=== PATIENT | male | born 1940 | race Caucasian/White ===

== ENCOUNTER 2018-01-20 07:52 | Outpatient (CLI) | payer MEDICARE ==
[2018-01-20 12:09] LABS: ALT ALANINE AMINOTRANSFERASE 36 IU/L (10-60); AST ASPARTATE AMINOTRANSFERASE 39 IU/L (10-42); CHOL/HDL RATIO 3.5 (<5.0); CHOLESTEROL 142 mg/dL; HDL CHOLESTEROL 41 mg/dL; LDL CHOLESTEROL,CALCULATED 85 mg/dL; LDL/HDL RATIO 2.1 (<3.6); VLDL CHOLESTEROL 16 mg/dL
== END 2018-01-20 07:53 | disposition home or self-care (01) ==
LOC: LAB.F 07:52
PROVIDERS: ATTEND Internal Medicine
DX: E78.5 Hyperlipidemia, unspecified (principal)
CPT/HCPCS: 36415; 80061; 83721; 84450; 84460

== ENCOUNTER 2018-07-20 10:50 | Outpatient (CLI) | payer MEDICARE ==
[2018-07-20 17:56] LABS: ALBUMIN 4.4 g/dL (3.2-5.5); ALBUMIN/GLOBULIN RATIO 1.6 (1.0-2.2); ALKALINE PHOSPHATASE 99 IU/L (42-121); ALT ALANINE AMINOTRANSFERASE 39 IU/L (10-60); AST ASPARTATE AMINOTRANSFERASE 44 IU/L (10-42); BILIRUBIN,TOTAL 0.9 mg/dL (0.2-1.0); BUN - BLOOD UREA NITROGEN 14 mg/dL (6-20); CALCIUM 10.6 mg/dL (8.5-10.3); CARBON DIOXIDE - CO2 29 mmol/L (21-32); CHLORIDE 104 mmol/L (101-111); CHOL/HDL RATIO 3.3 (<5.0); CHOLESTEROL 173 mg/dL; CREATININE 0.9 mg/dL (0.6-1.2); GFR - MDRD 82 (>89); GLUCOSE 97 mg/dL (70-100); HDL CHOLESTEROL 52 mg/dL; LDL CHOLESTEROL,CALCULATED 101 mg/dL; LDL/HDL RATIO 1.9 (<3.6); SODIUM 140 mmol/L (135-145); TOTAL PROTEIN 7.2 g/dL (6.7-8.2); VLDL CHOLESTEROL 20 mg/dL
[2018-07-20 18:30] LABS: HB2 TOTAL 18.8 g/dL; HEMOGLOBIN A1C 0.67 g/dL; HEMOGLOBIN A1C % 5.4 % (4.6-6.2)
== END 2018-07-20 10:51 | disposition home or self-care (01) ==
LOC: LAB.F 10:50
PROVIDERS: ATTEND Internal Medicine
DX: E78.5 Hyperlipidemia, unspecified (principal); Z13.1 Encounter for screening for diabetes mellitus
CPT/HCPCS: 36415; 80053; 80061; 83036; 83721

== ENCOUNTER 2019-02-04 06:38 | Day surgery (SDC) | payer MEDICARE ==
[2019-02-04] MEDS ORDERED: PHENYLEPHRINE 2.5% OPHTH 2 ML DROPS ONE (06:39)
[2019-02-04] MEDS ORDERED: CYCLOPENTOLATE 1% OPHTH DROPS 2 ML ONE (06:39)
[2019-02-04] MEDS ORDERED: KETOROLAC 0.45% OPHTH DROPS ONE (06:39)
[2019-02-04] MEDS ORDERED: PROPARACAINE 0.5% OPHTH DROPS 15 ML ONE (06:39)
[2019-02-04] MEDS ORDERED: BRIMONIDINE 0.2% OPHTH DROPS 5 ML ONE (07:14)
[2019-02-04] MEDS ORDERED: BSS/LIDOCAINE/EPINEPHRINE 1 ML SYRINGE ONE (07:14)
[2019-02-04] MEDS ORDERED: TIMOLOL 0.5% OPHTH DROPS ONE (07:14)
[2019-02-04] MEDS ORDERED: TRIAMCIN/MOXIFLOX OPHTHALMIC 0.6 ML VIAL IO ONE ×2 (07:14→08:26)
[2019-02-04] MEDS ORDERED: VANCOMYCIN OPHTHALMI 8MG/0.8ML 8 MG/0.8 ML SYRINGE IO ONE ×2 (07:14→08:26)
[2019-02-04] MEDS ORDERED: LACTATED RINGERS 500 ML IV ONE (07:35)
[2019-02-04] MEDS ORDERED: PROPARACAINE 0.5% OPHTH DROPS 15 ML LEFTEYE ONE ×2 (07:40→08:25)
[2019-02-04] MEDS ORDERED: CYCLOPENTOLATE 1% OPHTH DROPS 2 ML LEFTEYE ONE (07:40)
[2019-02-04] MEDS ORDERED: KETOROLAC 0.45% OPHTH DROPS LEFTEYE ONE (07:40)
[2019-02-04] MEDS ORDERED: PHENYLEPHRINE 2.5% OPHTH 2 ML DROPS LEFTEYE ONE (07:40)
--- NOTE | 2019-02-04 08:00 | ANESTHESIA ---
Pre-Anesthesia VS, & Labs - Diagnosis left nuclear sclerotic cataract - Procedure left cataract extraction with intraocular lens implant Vital Signs: Temp Pulse Resp BP Pulse Ox 36.9 C 70 16 155/79 H 94 02/04/19 07:36 02/04/19 07:36 02/04/19 07:36 02/04/19 07:36 02/04/19 07:36 Height 5 ft 8 in Weight (kg) 89 kg - NPO >8 hours Home Medications and Allergies Home Medications: Ambulatory Orders Atorvastatin Calcium [Lipitor] 40 mg PO DAILY 02/03/19 Lisinopril 40 mg PO DAILY 02/03/19 Atorvastatin Calcium [Lipitor] 40 mg PO DAILY 02/03/19 Lisinopril 40 mg PO DAILY 02/03/19 Allergies/Adverse Reactions: Allergies Allergy/AdvReac Type Severity Reaction Status Date / Time No Known Drug Allergies Allergy Verified 02/03/19 12:03 Anes History & Medical History - Anesthetic History Anesthesia Complications: reports: No previous complications - Medical History Cardiovascular: reports: Hypertension Pulmonary: reports: None Musculoskeletal: reports: None Skin: reports: None Smoking Status: Never smoker - Surgical History Eyes Ears Nose Throat (EENT): Detached retina repair Neurologic: Craniotomy (for subdural hematoma) Exam General: Alert Dental: Dentures full Upper, Dentures full Lower Mouth Opening: Greater than 4 Fingerbreadths Mallampati classification: II Thyromental Distance: greater than 6 cm Respiratory: Lungs clear Cardiovascular: Regular rate Mental/Cognitive Status: Alert/Oriented X3 Plan Anesthesia Type: MAC Consent for Procedure(s) Verified and Reviewed: Yes Code Status: Attempt Resuscitation ASA classification: 2-Mild systemic disease Is this case an emergency?: No
[2019-02-04] MEDS ORDERED: BRIMONIDINE 0.2% OPHTH DROPS 5 ML OPTH ONE (08:24)
[2019-02-04] MEDS ORDERED: EPINEPHrine 1 MG/ML AMP IVP ONE (08:24)
[2019-02-04] MEDS ORDERED: CHONDR SULF/HYALURONATE SYRINGE IO ONE (08:24)
[2019-02-04] MEDS ORDERED: BSS/LIDOCAINE/EPINEPHRINE 1 ML SYRINGE IO ONE (08:25)
[2019-02-04] MEDS ORDERED: TIMOLOL 0.5% OPHTH DROPS OPTH ONE (08:25)
[2019-02-04] MEDS ORDERED: MIDAZOLAM 2 MG/2 ML VIAL IVP ONE (08:47)
[2019-02-04] MEDS ORDERED: fentaNYL 100 MCG/2 ML VIAL IVP ONE (08:47)
[2019-02-04 09:04] VITALS: BP 118/58
--- NOTE | 2019-02-04 09:11 | OPERATIVE REPORT ---
DATE OF SERVICE: 02/04/2019 Physician: Rocky Bailey MD PREOPERATIVE DIAGNOSIS: Complex, visually significant cataract, left eye. Complex due to small pupil required mechanical dilation using a Malyugin Ring. This was his first cataract surgery. POSTOPERATIVE DIAGNOSIS: Complex, visually significant cataract, left eye. Complex due to small pupil required mechanical dilation using a Malyugin Ring. This was his first cataract surgery. PROCEDURE: Phacoemulsification with posterior chamber intraocular lens implant, left eye. SURGEON: Rocky Bailey MD ANESTHESIA: Monitored anesthesia care. COMPLICATIONS: None. OPERATIVE INDICATIONS: This is a 78-year-old man with progressive vision loss in the left eye due to 4+ nuclear sclerotic cataract. Best corrected visual acuity was 20/70 with glare to 20/150 in the left eye. Indications for surgery were overall decrease in vision, difficulty reading, difficulty seeing words, closed captions or game scores on TV and difficulty seeing street signs. He was consented at length concerning risks and benefits of cataract surgery, after which he expressed a desire to proceed with surgery. OPERATIVE PROCEDURE: Patient was taken into OR #3 and placed under monitored anesthesia care. A surgical timeout was conducted confirming the correct patient, correct procedure, and correct surgical site. He was given topical anesthesia and then prepped and draped in the usual sterile fashion. The eye was entered at the 6 and 3 o'clock positions and intracameral Shugarcaine was injected into the anterior chamber, followed by Viscoat. Because of small pupil, a 7.0 mm Malyugin ring was injected into the anterior chamber, and engaged the pupil margin at 4 points to expand the pupil. A continuous-tear curvilinear capsulorrhexis was then performed. The nucleus was hydrodissected and phacoemulsified. The cortex was evacuated using automated infusion and aspiration. Provisc was injected into the capsular bag, and a 21.0 diopter intraocular lens inserted in the bag. Approximately 0.8 mL of a mixture of triamcinolone, moxifloxacin and vancomycin was injected subconjunctivally in the superior quadrant for infection and inflammation prophylaxis. The Malyugin ring was then disengaged from the pupil margin and removed from the anterior chamber. I and A was used to evacuate the viscoelastic material. The eye was inflated to physiologic pressure using balanced salt solution and found to be watertight. Patient was taken from the operating room in good condition and given postoperative instructions. TD: 02/04/2019 09:04 FOREIGN
== END 2019-02-04 06:39 | disposition home or self-care (01) ==
LOC: SDS 06:38
PROVIDERS: ATTEND Ophthalmology
PROC: 08RK3JZ Replacement of Left Lens with Synthetic Substitute, Percutaneous Approach (ICD-10-PCS; principal; 2019-02-04 08:30)
DX: H25.12 Age-related nuclear cataract, left eye (principal); I10 Essential (primary) hypertension; Z95.0 Presence of cardiac pacemaker
CPT/HCPCS: 66984; A9270; J3490; V2632

== ENCOUNTER 2019-03-04 08:49 | Outpatient (CLI) | payer MEDICARE ==
[2019-03-04 10:41] LABS: ALBUMIN 4.3 g/dL (3.2-5.5); ALBUMIN/GLOBULIN RATIO 1.6 (1.0-2.2); ALKALINE PHOSPHATASE 81 IU/L (42-121); ALT ALANINE AMINOTRANSFERASE 45 IU/L (10-60); AST ASPARTATE AMINOTRANSFERASE 55 IU/L (10-42); BILIRUBIN,TOTAL 1.2 mg/dL (0.2-1.0); BUN - BLOOD UREA NITROGEN 15 mg/dL (6-20); CALCIUM 10.5 mg/dL (8.5-10.3); CARBON DIOXIDE - CO2 26 mmol/L (21-32); CHLORIDE 106 mmol/L (101-111); CHOL/HDL RATIO 3.5 (<5.0); CHOLESTEROL 173 mg/dL; CREATININE 0.8 mg/dL (0.6-1.2); GFR - MDRD 93 (>89); GLUCOSE 102 mg/dL (70-100); HDL CHOLESTEROL 50 mg/dL; LDL CHOLESTEROL,CALCULATED 107 mg/dL; LDL/HDL RATIO 2.1 (<3.6); SODIUM 140 mmol/L (135-145); VLDL CHOLESTEROL 16 mg/dL
== END 2019-03-04 08:50 | disposition home or self-care (01) ==
LOC: LAB.F 08:49
PROVIDERS: ATTEND Internal Medicine
DX: E78.5 Hyperlipidemia, unspecified (principal)
CPT/HCPCS: 36415; 80053; 80061; 83721

== ENCOUNTER 2019-04-08 07:38 | Day surgery (SDC) | payer MEDICARE ==
[~2019-04-08 07:38] MED LIST: BRIMONIDINE 0.2% OPHTH DROPS 5 ML ONE; BSS/LIDOCAINE/EPINEPHRINE 1 ML SYRINGE ONE; CYCLOPENTOLATE 1% OPHTH DROPS 2 ML ONE; EPINEPHrine 1 MG/ML AMP ONE; KETOROLAC 0.45% OPHTH DROPS ONE; PHENYLEPHRINE 2.5% OPHTH 2 ML DROPS ONE; PROPARACAINE 0.5% OPHTH DROPS 15 ML ONE; TIMOLOL 0.5% OPHTH DROPS ONE; TRIAMCIN/MOXIFLOX OPHTHALMIC 0.6 ML VIAL IO ONE; VANCOMYCIN OPHTHALMI 8MG/0.8ML 8 MG/0.8 ML SYRINGE IO ONE
[2019-04-08] MEDS ORDERED: LACTATED RINGERS 500 ML IV ONE (07:42)
[2019-04-08] MEDS ORDERED: PROPARACAINE 0.5% OPHTH DROPS 15 ML RIGHTEYE ONE ×2 (07:50→09:24)
[2019-04-08] MEDS ORDERED: KETOROLAC 0.45% OPHTH DROPS RIGHTEYE ONE (07:50)
[2019-04-08] MEDS ORDERED: CYCLOPENTOLATE 1% OPHTH DROPS 2 ML RIGHTEYE ONE (07:50)
[2019-04-08] MEDS ORDERED: PHENYLEPHRINE 2.5% OPHTH 2 ML DROPS RIGHTEYE ONE (07:50)
--- NOTE | 2019-04-08 08:26 | ANESTHESIA ---
Pre-Anesthesia VS, & Labs - Diagnosis nuclear sclerotic cataract - Procedure right cataract extraction with intraocular lens Vital Signs: Temp Pulse Resp BP Pulse Ox 37.1 C 70 18 166/75 H 97 04/08/19 07:47 04/08/19 07:47 04/08/19 07:47 04/08/19 07:47 04/08/19 07:47 Height 5 ft 8 in Weight (kg) 88.8 kg - NPO >8 hours Home Medications and Allergies Atorvastatin Calcium [Lipitor] 40 mg PO DAILY 02/03/19 Lisinopril 40 mg PO DAILY 02/03/19 Allergies/Adverse Reactions: Allergies Allergy/AdvReac Type Severity Reaction Status Date / Time No Known Drug Allergies Allergy Verified 04/08/19 07:46 Anes History & Medical History - Anesthetic History Anesthesia Complications: reports: No previous complications - Medical History Cardiovascular: reports: Hypertension Pulmonary: reports: None Gastrointestinal: reports: None Urinary: reports: None Musculoskeletal: reports: None Skin: reports: None Smoking Status: Never smoker - Surgical History Eyes Ears Nose Throat (EENT): Detached retina repair Neurologic: Craniotomy Exam General: Alert Dental: Dentures full Upper, Dentures full Lower Mouth Opening: Greater than 4 Fingerbreadths Neck Mobility: Normal Mallampati classification: II Thyromental Distance: greater than 6 cm Respiratory: Lungs clear Cardiovascular: Regular rate, Normal S1, Normal S2 Plan Anesthesia Type: MAC Consent for Procedure(s) Verified and Reviewed: Yes Code Status: Attempt Resuscitation ASA classification: 2-Mild systemic disease Is this case an emergency?: No
[2019-04-08] MEDS ORDERED: EPINEPHrine 1 MG/ML AMP IVP ONE (09:19)
[2019-04-08] MEDS ORDERED: BRIMONIDINE 0.2% OPHTH DROPS 5 ML OPTH ONE (09:19)
[2019-04-08] MEDS ORDERED: CHONDR SULF/HYALURONATE SYRINGE IO ONE (09:24)
[2019-04-08] MEDS ORDERED: TIMOLOL 0.5% OPHTH DROPS OPTH ONE (09:24)
[2019-04-08] MEDS ORDERED: BSS/LIDOCAINE/EPINEPHRINE 1 ML SYRINGE IO ONE (09:24)
[2019-04-08] MEDS ORDERED: VANCOMYCIN OPHTHALMI 8MG/0.8ML 8 MG/0.8 ML SYRINGE IO ONE (09:25)
[2019-04-08] MEDS ORDERED: TRIAMCIN/MOXIFLOX OPHTHALMIC 0.6 ML VIAL IO ONE (09:25)
[2019-04-08 09:59] VITALS: BP 137/82
--- NOTE | 2019-04-08 12:12 | OPERATIVE REPORT ---
DATE OF SERVICE: 04/08/2019 Physician: Rocky Bailey MD PREOPERATIVE DIAGNOSIS: Complex visually significant cataract, right eye, complex due to small pupil requiring pupil expansion with a Malyugin ring. Cataract surgery was performed on the left eye on 0 02/04/2019. POSTOPERATIVE DIAGNOSIS: Complex visually significant cataract, right eye, complex due to small pupi l requiring pupil expansion with a Malyugin ring. Cataract surgery was performed on the left eye on 02/04/2019. PROCEDURE: Phacoemulsification with posterior chamber intraocular lens implant, right eye. SURGEON: Rocky Bailey MD COMPANY DRIVER: ANESTHESIA PROVIDER: ANESTHESIA: Monitored anesthesia care. COMPLICATIONS: None. OPERATIVE INDICATIONS: This is a 78-year-old man with progressive vision loss in the right eye due t o 2-3+ nuclear sclerotic cataract. Best corrected visual acuity was 20/25, with glare to 20/60 in th e right eye. Indications for surgery are overall decrease in vision, difficulty reading, difficulty seeing words, closed captions or game scores on TV and difficulty seeing street signs. He was consen heidi at length concerning risks and benefits of cataract surgery, after which he expressed a desire to proceed with surgery. OPERATIVE PROCEDURE: Patient was taken to OR #3 and placed under monitored anesthesia care. Surgica l timeout was conducted confirming correct patient, correct procedure, and correct surgical site. He was given topical anesthesia and then prepped and draped in the usual sterile fashion. Eye was ente red at the 12 and 9 o'clock positions. Intracameral Shugarcaine was injected into the anterior chamb er, followed by Viscoat. A Malyugin ring was then injected into the anterior chamber, and engaged th e pupil margin at 4 points to expand the pupil. A continuous-tear curvilinear capsulorrhexis was per formed. Nucleus was hydrodissected and phacoemulsified. The cortex was evacuated using automated in fusion and aspiration. Provisc was injected in the capsular bag, and a 21.5 diopter intraocular lens inserted in the bag. The Malyugin ring was then disengaged from the pupil margin and removed from t he anterior chamber. I and A was used to evacuate the viscoelastic materials. Eye was inflated to p hysiologic pressure using balanced salt solution and found to be watertight. Approximately 0.8 mL of a mixture of triamcinolone, moxifloxacin and vancomycin was injected subconjunctivally in the superi or quadrant for infection and inflammation prophylaxis. Patient was taken from the operating room in good condition and given postoperative instructions. TD: 04/08/2019 10:51
== END 2019-04-08 07:39 | disposition home or self-care (01) ==
LOC: SDS 07:38
PROVIDERS: ATTEND Ophthalmology
PROC: 08RJ3JZ Replacement of Right Lens with Synthetic Substitute, Percutaneous Approach (ICD-10-PCS; principal; 2019-04-08 09:00)
DX: H25.11 Age-related nuclear cataract, right eye (principal); I10 Essential (primary) hypertension
CPT/HCPCS: 66982; A9270; J3490; V2632